=== PATIENT | female | born 1950 | race Two or more races ===

== ENCOUNTER 2024-08-26 10:39 | Emergency (ER) | payer MEDICARE, OTHER ==
[~2024-08-26] VITALS: Ht 149.9 cm; Wt 58.1 kg
[2024-08-26] MEDS: ACETAMINOPHEN ES 500 MG TABLET PO ONE (12:50)
[2024-08-26 14:27] VITALS: BP 141/74; TEMP 98.3; O2SAT 98
== END 2024-08-26 14:27 | disposition home or self-care (01) ==
LOC: EDBD 10:52 → ER 10:52
DX: I10 Essential (primary) hypertension (principal); M79.605 Pain in left leg; E11.9 Type 2 diabetes mellitus without complications; M79.604 Pain in right leg
CPT/HCPCS: 93970-TC